=== PATIENT | male | born 1995 | race Caucasian/White ===

== ENCOUNTER 2018-05-04 12:23 | Emergency (ER) | payer OTHER ==
--- NOTE | 2018-05-04 12:41 | ED ---
Syncope/Near Syncope - HPI Summary HPI Summary: [facility] attending Jose G Mckeon [facility]. Pt is a 22 y/o M presents to ED s/p possible syncopal episode. Per EMS, patient appeared to be in cardiac distress; CPR was started by staff. When EMS arrived, pt appeared to be coming out of a seizure and was post distal. Parents are at bedside and provided information of PMHx and history of event. Pt had a Hx of seizures as an for which he was treated with medications. He was slowly taken off of the medications because he stopped having those issues. People present said that it looked like he extended one arm and one leg, "like a stretch", and was found to have very blue discolored skin. Parents noted that he has not had a similar episode since infancy. It has been reported that he has had "seizure-like" episodes at school in the past 3 years but was worked up and tested negative for any seizures. I, Dr. Mckeon, personally performed the services described in this documentation as scribed in my presence and it is both accurate and complete. - History Of Current Complaint Hx Obtained From: Family/Steam Fitter Helper, EMS Onset/Duration: Sudden Onset, Lasting Minutes - Allergies/Home Medications Allergies/Adverse Reactions: Allergies Allergy/AdvReac Type Severity Reaction Status Date / Time No Known Allergies Allergy Verified 07/17/16 14:34 Home Medications: Home Medications Multivitamins/Minerals TAB* [Theragran/minerals TAB*] 1 tab PO DAILY 05/04/18 [ History Confirmed 05/04/18] Polyethylene Glycol 3350* [Miralax*] 17 gm PO DAILY PRN 05/04/18 [History Confirmed 05/04/18] PMH/Surg Hx/FS Hx/Imm Hx Endocrine/Hematology History: Denies: Hx Anticoagulant Therapy GI History: Reports: Other GI Disorders - altered motility, constipation requiring disimpaction Musculoskeletal History: 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 Neurological History: Reports: Hx Developmental Delay, Hx Seizures, 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 - Immunization History Date of Tetanus Vaccine: not vaccinated Infectious Disease History: Denies: History Other Infectious Disease, Traveled Outside the [place] in Last 30 Days - Family History Known Family History: Negative: Cardiac Disease, Hypertension, Diabetes - Social History Occupation: Student Lives: With Family Alcohol Use: None Substance Use Type: Reports: None Hx Tobacco Use: No Smoking Status (MU): Never Smoked Tobacco Review of Systems Negative: Fever, Chills, Fatigue, Skin Diaphoresis Negative: Photophobia, Blurred Vision, Diplopia, Drainage, Erythema Negative: Epistaxis, Dental Pain, Sore Throat, Ear Ache Negative: Palpitations, Chest Pain Negative: Shortness Of Breath, Cough Negative: Abdominal Pain, Vomiting, Diarrhea, Nausea Negative: burning, dysuria, discharge, frequency, flank pain, hematuria, incontinence, pain, urgency Negative: Arthralgia, Myalgia, Decreased ROM, Edema Negative: Rash, Bruising Positive: Syncope. Negative: Headache, Weakness, Paresthesia, Numbness, Slurred Speech Negative: Anxious, Depressed All Other Systems Reviewed And Are Negative: Yes Physical Exam - Summary Physical Exam Summary: Constitutional: Well-developed, Well-nourished, Alert. (-) Distressed Skin: Warm, Dry HENT: Normocephalic; Atraumatic Eyes: Conjunctiva normal Neck: Musculoskeletal ROM normal neck. (-) JVD, (-) Stridor, (-) Tracheal deviation Cardio: Rhythm regular, rate normal, Heart sounds normal; Intact distal pulses; The pedal pulses are 2+ and symmetric. Radial pulses are 2+ and symmetric. (-) Murmur Pulmonary/Chest wall: Effort normal. (-) Respiratory distress, (-) Wheezes, (-) Rales Abd: Soft, (-) epigastric tenderness, (-) Distension, (-) Guarding, (-) Rebound Musculoskeletal: (-) Edema, no bony tenderness along sternum/ribs. Lymph: (-) Cervical adenopathy Neuro: Alert, Oriented x3 Psych: Mood and affect Normal Lower Extremities: Contracted. Triage Information Reviewed: Yes Vital Signs Reviewed: Yes Diagnostics - Laboratory Result Diagrams: 05/04/18 13:08 05/04/18 15:17 Lab Statement: Any lab studies that have been ordered have been reviewed, and results considered in the medical decision making process. - Radiology CXR Xray Interpretation: No Acute Changes - IMPRESSION: NO DEFINITE PNEUMONIA IS IDENTIFIED WITH POOR INSPIRATION. Radiology Interpretation Completed By: Radiologist - Report has been reviewed by provider and radiologist. - CT Brain CT CT Interpretation: Positive (See Comments) - IMPRESSION: No acute changes are noted although periventricular densities are noted consistent with chronic ischemic White matter change. This is more prominent than was previously identified. There is evidence of an arachnoid cyst in the middle cranial fossa on the right. 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 These are unchanged from previous exam. CT Interpretation Completed By: Radiologist - Report has been reviewed by provider and radiologist. - EKG 1308 Cardiac Rate: NL - 87 bpm EKG Rhythm: Sinus Rhythm ST Segment: Normal Ectopy: None Course/Dx Course Of Treatment: Provider saw patient and reports that it is most likely psyanosis secondary to seizure - Diagnoses Provider Diagnoses: Breakthrough seizure, Apnea, Left against medical advice - Physician Notifications Discussed Care of Patient With: David Leger Time Discussed With Above Provider: 17:35 Instructed by Provider To: Other - Provider discussed further care of pt with Dr. Leger who states the patient is at an increased risk of by seizure. He reccomonds that the patient be placed on Keppra and held under observation in hospital. Discharge - Sign-Out/Discharge Documenting (check all that apply): Patient Departure - Discharge Plan Condition: Stable Disposition: AGAINST MEDICAL ADVICE Referrals: Carrie Verma MD [Primary Care Provider] - - Billing Disposition and Condition Condition: STABLE Disposition: Against Medical Advice
[2018-05-04 13:31] LABS: INR 0.87 (0.77-1.02)
--- NOTE | 2018-05-04 13:43 | RAD ---
Indication: Cyanosis. Single frontal view of the chest performed at 1325 hours was reviewed. Comparison is made with previous exam dated August 13, 2016. Heart is of normal size and configuration. Poor inspiration is noted. No definite pneumonia is identified. IMPRESSION: NO DEFINITE PNEUMONIA IS IDENTIFIED WITH POOR INSPIRATION.
[2018-05-04 13:53] LABS: EGFR Non-African American 243.3 (>60)
[2018-05-04 14:00] LABS: Hematocrit 33 % (42-52); Hemoglobin 11.2 g/dl (14.0-18.0); Mean Corpuscular HGB Conc 34 g/dl (31-36); Mean Corpuscular Hemoglobin 36 pg (27-31); Mean Corpuscular Volume 107 fL (80-94); Mean Platelet Volume 9.3 um3 (7.4-10.4); Platelet Count 167 10^3/ul (150-450); Red Blood Count 3.11 10^6/ul (4.00-5.40); Red Cell Distribution Width 15 % (10.5-15); White Blood Count 9.1 10^3/ul (3.5-10.8)
[2018-05-04] MEDS ORDERED: NS 0.9% 1000 ML* 1,000 ML IV ONE (14:06)
[2018-05-04 14:14] LABS: ABS Basophils 0 10^3/ul (0-0.2); ABS Eosinophils 0.2 10^3/ul (0-0.6); ABS Lymphocytes 1.3 10^3/ul (1.0-4.8); ABS Monocytes 0.3 10^3/ul (0-0.8); ABS Neutrophils 7.3 10^3/ul (1.5-7.7); ABS Nucleated RBC 0 10^3/ul; Eosinophil % 2.1 % (0-6); Lymphocyte % 13.8 % (25-47); Nucleated Red Blood Cells % 0
--- NOTE | 2018-05-04 14:23 | RAD ---
Indication: Seizures. CT of the brain performed without IV contrast. Comparison is made with previous exam dated July 27, 2016. Ventricular structures are midline. The left lateral ventricle appears larger than the right. This is unchanged from previous exam. Again noted is a large arachnoid cyst in the middle cranial fossa which is unchanged from previous exam. There is communication of a posterior fossa cyst with the fourth ventricle consistent with a Dandy-Walker variant. No evidence of intracranial mass or hemorrhage is noted although there is periventricular lucency consistent with chronic ischemic White matter change. IMPRESSION: No acute changes are noted although periventricular densities are noted consistent with chronic ischemic White matter change. This is more prominent than was previously identified. There is evidence of an arachnoid cyst in the middle cranial fossa on the right. 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 These are unchanged from previous exam.
[2018-05-04 18:23] VITALS: BP 95/65
== END 2018-05-04 18:20 | disposition left against medical advice (07) ==
LOC: ED 12:23
DX: R23.0 Cyanosis (principal); R55 Syncope and collapse; G93.0 Cerebral cysts; Q03.1 Atresia of foramina of Magendie and Luschka; R56.9 Unspecified convulsions
CPT/HCPCS: 36415; 70450; 71045; 80053; 83605; 83735; 85025; 85610; 93005; 96360; 99283

== ENCOUNTER 2018-06-20 09:37 | Emergency (ER) | payer OTHER ==
[2018-06-20 09:46] VITALS: BP 95/46
--- NOTE | 2018-06-20 10:13 | ED ---
GI/ HPI - HPI Summary HPI Summary: This patient is a 22 year old M presenting to [facility] accompanied by an aide after his G tube fell out at 0830 this morning. The aide states she is not permitted to put the G tube back in and was instructed to bring the patient to a health personal care service provider. 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 LEVEL 5 CAVEAT: due to Patau syndrome the patient cannot report history. - History of Current Complaint Chief Complaint: EDGeneral Time Seen by Provider: 06/20/18 10:07 Stated Complaint: GI TUBE FELL OUT Hx Obtained From: Family/Daycare Teacher Onset/Duration: Still Present Timing: Constant, Lasting Hours Current Severity: None Pain Intensity: 0 Location of Pain: None Associated Signs and Symptoms: Positive: Negative - fever - Additional Pertinent History Primary Care Physician: HUBER - Allergy/Home Medications Allergies/Adverse Reactions: Allergies Allergy/AdvReac Type Severity Reaction Status Date / Time No Known Allergies Allergy Verified 06/20/18 09:46 PMH/Surg Hx/FS Hx/Imm Hx Endocrine/Hematology History: Denies: Hx Anticoagulant Therapy, Hx Diabetes Cardiovascular History: Denies: Hx Hypertension Respiratory History: Denies: Hx Chronic Obstructive Pulmonary Disease (COPD) GI History: Reports: Other GI Disorders - altered motility, constipation requiring disimpaction History: Denies: Hx Dialysis Musculoskeletal History: 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 Denies: Hx Back Problems Neurological History: Reports: Hx Developmental Delay, Hx Seizures, 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 Denies: Hx Dementia - Immunization History Date of Tetanus Vaccine: not vaccinated Infectious Disease History: No Infectious Disease History: Denies: History Other Infectious Disease, Traveled Outside the [place] in Last 30 Days - Family History Known Family History: Negative: Cardiac Disease, Hypertension, Diabetes - Social History Alcohol Use: None Substance Use Type: Reports: None Hx Tobacco Use: No Smoking Status (MU): Never Smoked Tobacco Review of Systems Negative: Fever Positive: Other - G tube not in place All Other Systems Reviewed And Are Negative: No - Comments Additional Review of Systems Comments: LEVEL 5 CAVEAT: due to Patau syndrome the patient cannot report history. Physical Exam - Summary Physical Exam Summary: Appearance: Well-appearing, Well-nourished, lying in bed comfortable Skin: Warm, dry, no obvious rash Eyes: sclera anicteric, no conjunctival pallor ENT: mucous membranes moist Neck: deferred Respiratory: No signs of respiratory distress Cardiovascular: Appears well perfused, pulses are nml Abdomen: deferred Musculoskeletal: Moving all 4 extremities without obvious discomfort Neurological: Awake and alert, Triage Information Reviewed: Yes Vital Signs On Initial Exam: Initial Vitals Temp Pulse Resp BP Pulse Ox 98.3 F 75 20 95/46 94 06/20/18 09:38 06/20/18 09:38 06/20/18 09:38 06/20/18 09:38 06/20/18 09:38 Vital Signs Reviewed: Yes Completion Of Physical Exam Limited Due To: Level 5 Procedures - Procedure Summary Procedure Summary: Gastrostomy tube was successfully placed using sterile technique. Procedure was well tolerated without complications. Diagnostics - Vital Signs Vital Signs Temp Pulse Resp BP Pulse Ox 06/20/18 09:38 98.3 F 75 20 95/46 94 - Laboratory Lab Statement: Any lab studies that have been ordered have been reviewed, and results considered in the medical decision making process. GIGU Course/Dx - Course Assessment/Plan: This patient is a 22 year old M presenting to [facility] accompanied by an aide after his G tube fell out at 0830 this morning. The aide states she is not permitted to put the G tube back in and was instructed to bring the patient to a health personal care service provider. 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 LEVEL 5 CAVEAT: due to Patau syndrome the patient cannot report history. Gastrostomy tube was successfully placed in the ED using sterile technique. Procedure was well tolerated without complications. Pt was discharged with his health aide. Instructions were given on how to care for the tube. Pt will f/u with his PCP. - Diagnoses Provider Diagnoses: Encounter for gastrojejunal tube placement Discharge - Sign-Out/Discharge Documenting (check all that apply): Patient Departure - Discharge Plan Condition: Stable Disposition: HOME Referrals: Carrie Verma MD [Primary Care Provider] - - Attestation Statements Document Initiated by Scribe: Yes Documenting Scribe: Tiburcio Valdovinos Provider For Whom Scribe is Documenting (Include Credential): Daniel Koch MD Scribe Attestation: Tiburcio Banda , scribed for Daniel Koch MD on 06/20/18 at 1035.
== END 2018-06-20 10:20 | disposition home or self-care (01) ==
LOC: ED 09:37
DX: Z43.1 Encounter for attention to gastrostomy (principal)
CPT/HCPCS: 99281

== ENCOUNTER → 2018-06-21 23:37 | Emergency (ER) | payer OTHER ==
[2018-06-21 23:55] VITALS: BP 0/0
--- NOTE | 2018-06-22 01:30 | ED ---
GI/ HPI - HPI Summary HPI Summary: This is scribe Ayden Han documenting for attending Dr. Avtar Barraza MD. This patient is a 22 year old M arriving with staff from [facility] with a chief complaint of feeding tube displacement since 22:00. FHx and SHx unobtainable due to the pts inability to communicate, level 5 caveat. PMHx mental retardation. I, Dr. Barraza, personally performed the services described in this documentation as scribed in my presence and it is both accurate and complete. - History of Current Complaint Chief Complaint: EDGeneral Time Seen by Provider: 06/22/18 00:26 Stated Complaint: FEEDING TUBE ISSUE Hx Obtained From: Family/Precision Lathe Operator - mother Hx From Patient Unobtainable Due To: Altered Mental Status Pain Intensity: 0 - Additional Pertinent History Primary Care Physician: HUBER - Allergy/Home Medications Allergies/Adverse Reactions: Allergies Allergy/AdvReac Type Severity Reaction Status Date / Time No Known Allergies Allergy Verified 06/21/18 23:55 PMH/Surg Hx/FS Hx/Imm Hx Endocrine/Hematology History: Denies: Hx Anticoagulant Therapy, Hx Diabetes Cardiovascular History: Denies: Hx Hypertension Respiratory History: Denies: Hx Chronic Obstructive Pulmonary Disease (COPD) GI History: Reports: Other GI Disorders - altered motility, constipation requiring disimpaction History: Denies: Hx Dialysis Musculoskeletal History: 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 Denies: Hx Back Problems Neurological History: Reports: Hx Developmental Delay, Hx Seizures, 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 Denies: Hx Dementia - Immunization History Date of Tetanus Vaccine: not vaccinated Infectious Disease History: No Infectious Disease History: Denies: History Other Infectious Disease, Traveled Outside the [place] in Last 30 Days - Family History Known Family History: Negative: Cardiac Disease, Hypertension, Diabetes - Social History Alcohol Use: None Substance Use Type: Reports: None Hx Tobacco Use: No Smoking Status (MU): Never Smoked Tobacco Review of Systems - ROS Summary Review of Systems Summary: ROS unobtainable due to the patient's inability to communicate, level 5 caveat All Other Systems Reviewed And Are Negative: No Physical Exam - Summary Physical Exam Summary: GENERAL: Patient is a well-developed and nourished male who is contracted and nonverbal. Patient is not in any acute respiratory distress. HEAD AND FACE: No signs of trauma. No ecchymosis, hematomas or skull depressions. No sinus tenderness. EYES: PERRLA, EOMI x 2, No injected conjunctiva, no nystagmus. EARS: Hearing grossly intact. Ear canals and tympanic membranes are within normal limits. MOUTH: Oropharynx within normal limits. NECK: Supple, trachea is midline, no adenopathy, no JVD, no carotid bruit, no c- spine tenderness, neck with full ROM. CHEST: Symmetric, no tenderness at palpation LUNGS: Clear to auscultation bilaterally. No wheezing or crackles. CVS: Regular rate and rhythm, S1 and S2 present, no murmurs or gallops appreciated. ABDOMEN: Soft, non-tender. No signs of distention. No rebound no guarding, and no masses palpated. Bowel sounds are normal. There is a small opening in the left side of the mid abd where the Saulo/Girard tube was displaced. EXTREMITIES: FROM in all major joints, no edema, no cyanosis or clubbing. NEURO: Deferred SKIN: Dry and warm Triage Information Reviewed: Yes Vital Signs On Initial Exam: Initial Vitals Temp Pulse Resp BP Pulse Ox 98.0 F 82 16 0/0 0 06/21/18 23:45 06/21/18 23:45 10 23:45 06/21/18 23:45 06/21/18 23:45 Vital Signs Reviewed: Yes Diagnostics - Vital Signs Vital Signs Temp Pulse Resp BP Pulse Ox 06/21/18 23:45 98.0 F 82 16 0/0 0 - Laboratory Lab Statement: Any lab studies that have been ordered have been reviewed, and results considered in the medical decision making process. Re-Evaluation - Re-Evaluation First Eval Re-Evaluation Time: 01:15 Change: Improved Comment: The jazmín brought a Saulo/Girard bottle with her and reports that it is reinserted. We do not have Saulo/Girard bottles in the ED. GIGU Course/Dx - Course Course Of Treatment: This patient is a 22 year old M arriving with staff from [facility] with a chief complaint of feeding tube displacement since 22:00. FHx and SHx unobtainable due to the pts inability to communicate, level 5 caveat. PMHx mental retardation. Pt's silicator arrived with Saulo/Girard bottle, we do not have Saulo/Girard bottles in the ED. Pt's silicator reports that the tube is placed. Pt will be discharged home. Pt is agreeable with this plan. - Diagnoses Provider Diagnoses: Feeding tube dysfunction Discharge - Sign-Out/Discharge Documenting (check all that apply): Patient Departure - discharge - Discharge Plan Condition: Stable Disposition: HOME Patient Education Materials: Tube Feeding (DC) Referrals: Carrie Verma MD [Primary Care Provider] - Additional Instructions: RETURN TO THE EMERGENCY DEPARTMENT FOR CHANGING OR WORSENING SYMPTOMS - Billing Disposition and Condition Condition: STABLE Disposition: Home - Attestation Statements Document Initiated by Scribe: Yes Documenting Scribe: Ayden Han Provider For Whom Rio is Documenting (Include Credential): Avtar Barraza MD Scribe Attestation: Ayden Banda scribed for Avtar Barraza MD on 06/22/18 at 0156. Scribe Documentation Reviewed: Yes Provider Attestation: The documentation as recorded by the Ayden lake accurately reflects the service I personally performed and the decisions made by Milagros krishnamurthy MD
== END | disposition home or self-care (01) ==
LOC: ED 23:37
DX: K94.23 Gastrostomy malfunction (principal)
CPT/HCPCS: 99282

== ENCOUNTER 2018-10-01 08:29 | Emergency (ER) | payer OTHER ==
--- OUTSIDE RECORDS SUMMARY | 2018-10-01 08:34 | XMS REPORT | Continuity of Care Document ---
:1995 External Reference #:[id number] Author Name Henny Rivera Care Team Providers Name Role Phone Carrie Mejía MD Primary Care Physician Unavailable Payers Type Date Identification Numbers Payment Provider Subscriber Policy Number: [id number] Mon/[employer] Medicaid Ilia Albert PayID: [id number] [facility] [id number] [place] [id number] Advance Directives Description No Information Available Problems Description No Information Family History Description No Information Available Social History Type Date Description Comments Sex Unknown ETOH Use Never used alcohol Tobacco Use Start: Unknown Patient has never smoked Smoking Status Reviewed: 09/05/18 Patient has never smoked Allergies, Adverse Reactions, Alerts Description No Known Drug Allergies Medications Description No Active Medications Immunizations Description No Information Available Vital Signs Date Vital Result Comment 09/05/2018 8:32am Weight 56.00 lb Results Test Date Facility Test Result H/L Range Note Arterial Blood Gas 07/17/2016 [facility] O2 Device oxymask N [address] [place] [address] [phone] Fio2 90 N PH Arterial 7.41 N 7.35-7.45 Pco2 Arterial 31 mmHg Low 35-45 Po2 Arterial 214 mmHg High 80-100 O2 Saturation Arterial 97.0 % N 95-98 Base Excess Arterial -4.2 Low -2.0-2.0 1 Hco3 Arterial 21.6 mmol/L N 19-31 Laboratory test 07/17/2016 [facility] Lactic Acid 1.5 mmol/L N 0.5-2.0 2 finding [address] [place] [address] [phone] 1 Reference ranges based on room air. 2 [facility] Severe Sepsis and Septic Shock Management Bundle Measure requires all lactic acids initially measuring >2.0 mmol/L be repeated. 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 unspecified Hospitalists Q91.7 Trisomy 13, unspecified Office Visit 08/18/2016 [facility] Santiago R13.14 Dysphagia, 7:00a [facility] Kofi pharyngoesophageal Locker Room Attendant phase E46 Unspecified protein-calorie malnutrition Q91.7 Trisomy 13, unspecified Office Visit 08/17/2016 12:47p [facility] Christen R13.10 Dysphagia, Assocochoa M.D. unspecified Hospitalists Q91.7 Trisomy 13, unspecified Office Visit 08/16/2016 12:46p [facility] Christen R13.10 Dysphagia, Assoc[place]oa M.D. 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 unspecified Hospitalists G40.901 Epilepsy, unsp, not intractable, with status epilepticus E46 Unspecified protein-calorie malnutrition J69.0 Pneumonitis due to inhalation of food and vomit Office Visit 08/10/2016 1:09p [facility] Bryan Posadas, J69.0 Pneumonitis due ochoa Rogers M.D. to inhalation of Hospitalists food and vomit G93.40 Encephalopathy, unspecified E46 Unspecified protein-calorie malnutrition J96.01 Acute respiratory failure with hypoxia Office Visit 08/09/2016 1:08p [facility] Bryan Posadas, J69.0 Pneumonitis due Assochoa roca M.D. to inhalation of Hospitalists food and vomit G93.40 Encephalopathy, unspecified E46 Unspecified protein-calorie malnutrition J96.01 Acute respiratory failure with hypoxia Office Visit 08/08/2016 1:08p [facility] Darrell Henriquez J69.0 Pneumonitis due Assoc,ochoa Salmeron D.O. to inhalation of Hospitalists food and vomit G93.40 Encephalopathy, unspecified E46 Unspecified protein-calorie malnutrition J96.01 Acute respiratory failure with hypoxia Office Visit 08/07/2016 [facility] Darrell Henriquez G93.40 Encephalopathy, 1:07p ochoa Rogers D.O. 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 unspecified Hospitalists J96.01 Acute respiratory failure with hypoxia J69.0 Pneumonitis due to inhalation of food and vomit [facility] Encephalopathy, 1:04p ochoa Rogers M.D. unspecified Hospitalists J96.01 Acute respiratory failure with hypoxia J69.0 Pneumonitis due to inhalation of food and vomit Office Visit [facility] G93.40 Encephalopathy, 1:03p ochoa Rogers M.D. 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 G93.40 Encephalopathy, 1:03p ochoa Rogers M.D. unspecified Hospitalists J96.01 Acute respiratory failure with hypoxia J69.0 Pneumonitis due to inhalation of food and vomit Office Visit 07/[facility] G93.40 Encephalopathy, 1:02p ochoa Rogers M.D. 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 unspecified Hospitalists J96.01 Acute respiratory failure with hypoxia J69.0 Pneumonitis due to inhalation of food and vomit Q91.7 Trisomy 13, unspecified Office Visit 07/28/2016 [facility] [place] G93.40 Encephalopathy, 12:57p Assoc,ochoa Meza M.D. 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 unspecified Hospitalists J96.01 Acute respiratory failure with hypoxia G40.901 Epilepsy, unsp, not intractable, with status epilepticus J69.0 Pneumonitis due to inhalation of food and vomit Office Visit 07/26/2016 [facility] Darrell Henriquez G93.40 Encephalopathy, 12:52p Assoc,pc Jaron, D.O. 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.7 Trisomy 13, unspecified Office Visit 07/24/2016 5:19p [facility] Arlen R41.82 Altered mental Assoc,ochoa Ambrocio MD status, Hospitalists unspecified A40.3 Sepsis due to Streptococcus pneumoniae G40.901 Epilepsy, unsp, not intractable, with status epilepticus 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 not intractable, Hospitalists with status epilepticus J96.01 Acute respiratory failure with hypoxia A41.9 Sepsis, unspecified organism Q91.7 Trisomy 13, unspecified Office Visit 07/21/2016 [facility] Darrell Henriquez G40.901 Epilepsy, unsp, 3:43p Assoc,pc Jaron, D.O. not intractable, Hospitalists with status epilepticus J96.01 Acute respiratory failure with hypoxia A41.9 Sepsis, unspecified organism Q91.7 Trisomy 13, unspecified Office Visit 07/20/2016 [facility] Darrell Henriquez G40.901 Epilepsy, unsp, 3:42p Assoc,pc Jaron, D.O. not intractable, Hospitalists with status epilepticus J96.01 Acute respiratory failure with hypoxia A41.9 Sepsis, unspecified organism Q91.7 Trisomy 13, unspecified Office 07/19/2016 [facility] G40.909 Epilepsy, unsp, Visit 12:00p Arnaldo Leger MD not intractable, without status epilepticus Q91.7 Trisomy 13, unspecified Office Visit 07/19/2016 [facility] Darrell Henriquez G40.901 Epilepsy, unsp, 3:42p Assoc,pc Jaron, D.O. 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 not intractable, without status epilepticus Q91.7 Trisomy 13, unspecified Office Visit 07/18/2016 [facility] Darrell McnamaraJuan Carlos G40.901 Epilepsy, unsp, 3:41p Assoc,ochoa Salmeron D.O. not intractable, Hospitalists with status epilepticus J96.01 Acute respiratory failure with hypoxia A41.9 Sepsis, unspecified organism Q91.7 Trisomy 13, unspecified Office Visit 07/17/2016 [facility] Tahir R56.9 Unspecified 3:40p Assoc,ochoa Najera, N.P. 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 Pneumococcal Hospitalists 758.1 Pataus Syndrome 518.81 Respiratory Failure Acute 783.0 Anorexia Office Visit 10/23/2014 10:50a [facility] [place] Banerjee Pneumonia Assochoa roca M.D. Pneumococcal Hospitalists 758.1 Pataus Syndrome 518.81 Respiratory Failure Acute 783.0 Anorexia Office Visit 10/22/2014 10:49a [place] [facility] [place] Oxana Pneumonia Assochoa roca M.D. Pneumococcal Hospitalists 758.1 Pataus Syndrome 518.81 Respiratory Failure Acute 783.0 Anorexia Office Visit 10/21/2014 10:49a [facility] [place] Oxana Pneumonia Assochoa roca M.D. Pneumococcal Hospitalists 758.1 Pataus Syndrome 518.81 Respiratory Failure Acute 783.0 Anorexia Office Visit 10/20/2014 10:48a [facility] [place] Banerjee Pneumonia Assoc[place] M.D. Pneumococcal Hospitalists 758.1 Pataus Syndrome 518.81 Respiratory Failure Acute 783.0 Anorexia Office Visit 10/19/2014 10:48a [facility] Clayton Waller 48Oxana Pneumonia Assocochoa.OJuan Carlos Pneumococcal Hospitalists 758.1 Pataus Syndrome 783.0 Anorexia 785.2 Murmur Cardiac Undiagnosed Office Visit 10/18/2014 [place] T[facility]ia McnamaraJuan Carlos 518.81 Respiratory 10:47a Assoc,ochoa Salmeron D.O. 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 Failure Acute Hospitalists 038.9 Septicemia Unspec 481 Pneumonia [facility]ococcal [facility]58.1 [facility] 10/15/2014 2:03p [facility] [place], 518.81 [facility] Failure [facility] 486 Pneumonia Organism Unspec Office Visit 10/15/2014 10:45a [facility] Tahir [place], 758.1 [facility] Syndrome Hospitalists 038.9 Septicemia Unspec Plan of Treatment Future Appointment(s):12/04/2018 2:15 pm - Jalen Dejesus M.D. at [place] [facility]
--- NOTE | 2018-10-01 08:40 | UC ---
Skin Complaint HPI - HPI Summary HPI Summary: 23 yo male presents accompanied by caretakers. He is non-verbal and is wheelchair bound due to disability. History is provided by the caretakers. She tells me that last night an aide noted some swelling to pt's right foot. They kept it elevated throughout the night, but swelling seems worse this morning. Upon touching the area pt pulls his foot away. No fevers. - History of Current Complaint Time Seen by Provider: 10/01/18 08:35 Stated Complaint: FOOT COMPLAINT Hx Obtained From: Family/Tax Investigator Onset/Duration: Sudden Onset Pain Scale Used: Adult Non Verbal - Allergy/Home Medications Allergies/Adverse Reactions: Allergies Allergy/AdvReac Type Severity Reaction Status Date / Time No Known Allergies Allergy Verified 10/01/18 08:48 Home Medications: Home Medications Acetaminophen PED LIQ* [Tylenol PED LIQ UDC*] 10 ml G TUBE Q4H PRN 10/01/18 [ History Confirmed 10/01/18] Ibuprofen [Ibuprofen 100 MG/5 ML] 10 ml G TUBE Q6H PRN 10/01/18 [History Confirmed 10/01/18] Maximum Vibrance 1 dose G TUBE TID 10/01/18 [History Confirmed 10/01/18] Mupirocin 2% CREAM* [Bactroban 2% CREAM*] 1 applic TOPICAL BID PRN 10/01/18 [ History Confirmed 10/01/18] Mv-Mn/Folic Acid/Lutein/Wel085 [Mens Multivit High Potency Tab] 1 each G TUBE DAILY 10/01/18 [History Confirmed 10/01/18] Nutritional Supplement/Fiber [Liquid Hope] 1 dose G TUBE TID 10/01/18 [History Confirmed 10/01/18] Sodium Ascorbate 1 dose G TUBE TID 10/01/18 [History Confirmed 10/01/18] Zinc Oxide [Desitin] 1 applic EX BID PRN 10/01/18 [History Confirmed 10/01/18] PMH/Surg Hx/FS Hx/Imm Hx - Additional Past Medical History Additional PMH: DVT Seizure Trisomy 13 Other History Of: Negative For: Anticoagulant Therapy - Surgical History Surgical History: None - Family History Known Family History: Negative: Cardiac Disease, Hypertension, Diabetes - Social History Occupation: Disabled Lives: [employer] Alcohol Use: None Substance Use Type: None Smoking Status (MU): Never Smoked Tobacco - Immunization History Most Recent Influenza Vaccination: unknown Most Recent Tetanus Shot: unknown Most Recent Pneumonia Vaccination: unknown Review of Systems All Other Systems Reviewed And Are Negative: Yes Constitutional: Positive: Negative Skin: Positive: Negative Respiratory: Positive: Negative Cardiovascular: Positive: Negative Musculoskeletal: Positive: Other: - Right foot swelling Physical Exam - Summary Physical Exam Summary: GENERAL: NAD. No pain distress. SKIN: RIGHT FOOT: Mild warmth. No open sores, ulcers, or drainage. CHEST: No accessory muscle use. Breathing comfortably and in no distress. CV: DP and TP intact b/l. Cap refill <2seconds MSK: RIGHT FOOT: deformity. mild edema at foot and ankle. Pulls foot away when palpating. Atrophy of legs and feet. NEURO: Alert. PSYCH: Age appropriate behavior. Triage Information Reviewed: Yes Vital Signs: Vital Signs: Temp Pulse Resp BP Pulse Ox 98.3 F 10/01/18 08:36 Vital Signs Reviewed: Yes Course/Dx - Course Course Of Treatment: XR: IMPRESSION: 1. Generalized soft tissue swelling about the dorsal forefoot. 2. A 3 mm osseous fragment medial to the head of the second metatarsal is suspicious for. an avulsed fracture fragment. Pt is already non-weight bearing and his condition is not amenable to post-op shoe, boot, or splinting. Will start him on keflex for suspicion of developing cellulitis. Advised to f/u with PCP within 1 week for a recheck. - Diagnoses Provider Diagnosis: Cellulitis Discharge - Sign-Out/Discharge Documenting (check all that apply): Patient Departure All imaging exams completed and their final reports reviewed: Yes - Discharge Plan Condition: Stable Disposition: HOME Prescriptions: Cephalexin SUSP* [Keflex SUSP 250 MG/5 ML*] 500 mg PEG TUBE TID #150 ml Patient Education Materials: Cellulitis (DC) Referrals: Carrie Verma MD [Primary Care Provider] - 2 Days Additional Instructions: If you develop a fever, shortness of breath, chest pain, new or worsening symptoms - please call your PCP or go to the ED. Please schedule a follow up appointment with his primary doctor for a recheck in 1-2 days. Keep the foot elevated as much as possible. If the swelling or redness get worse - please go to the ER. - Billing Disposition and Condition Condition: STABLE Disposition: Home - Attestation Statements Provider Attestation: I was available for consult. This patient was seen by the [facility]. The patient care was discussed with me Sivan Bowling MD
== END 2018-10-01 10:08 | disposition home or self-care (01) ==
LOC: UCEAST 08:29
DX: L03.115 Cellulitis of right lower limb (principal); Z99.3 Dependence on wheelchair; F80.9 Developmental disorder of speech and language, unspecified; R47.1 Dysarthria and anarthria; Q91.7 Trisomy 13, unspecified
CPT/HCPCS: 99212; G0463